=== PATIENT | male | born 1970 | race Caucasian/White ===

== ENCOUNTER → 2025-07-21 11:17 | Outpatient (REF) | payer OTHER, SELFPAY | LOC: HWRCS 11:17 | PROVIDERS: ATTENDING PHYSICIAN Internal Medicine Cardiovascular Disease; FAMILY PHYSICIAN Family Medicine | DX: Z95.1 Presence of aortocoronary bypass graft (principal); I25.2 Old myocardial infarction; I10 Essential (primary) hypertension | CPT/HCPCS: 78452; 93017; A9500 ==

== ENCOUNTER 2025-08-02 06:25 | Day surgery (SDC) | payer OTHER, SELFPAY ==
[2025-07-29 08:25] VITALS: BMI 32.8
[2025-07-29 08:26] LABS: Hematocrit 43.3 % (39.0-52.0); Hemoglobin 14.8 g/dL (13.0-18.0); Mean Corp Hgb Conc. 34.2 g/dL (33.0-37.0); Mean Corpuscular Volume 85.2 fL (80.0-94.0); Nucleated Red Blood Cells % 0 % (-); Platelet Count 171 10^3/uL (130-400); Red Cell Dist. Width 13.9 % (11.5-14.5)
[2025-07-29 09:10] LABS: ALT (SGPT) 36 U/L (0-50); AST (SGOT) 32 U/L (17-59); Albumin 4.9 g/dl (3.5-5.0); Alkaline Phosphatase 68 U/L (38-126); Blood Urea Nitrogen 19 mg/dl (9-20); Calcium 9.6 mg/dl (8.4-10.2); Carbon Dioxide 28 mmol/L (22-30); Chloride 106 mmol/L (98-107); Estimated Creatinine Clearance 125 ml/min; Glucose 100 mg/dl (70-99); Potassium 3.9 mmol/L (3.5-5.1); Sodium 142 mmol/L (135-145); Total Protein 7.7 g/dl (6.3-8.2); eGFR > 60.00
[2025-08-02] VITALS (13 sets, daily range): BP systolic 133–151; BP diastolic 83–94
[2025-08-02] MEDS: NSS 338 ML IV (07:23)
--- NOTE | 2025-08-02 09:52 | ITS.CL.CATH ---
[employer] - Catheterization
Cardiac Catheterization
Procedure Report:
LEFT HEART CATHETERIZATION
Date of Procedure: August 02, 2025
Referring: Dr. Miguel Zendejas
PROCEDURES:
1. Left heart catheterization with coronary and single-plane left ventriculography
2. Selective saphenous vein graft and DEBBI angiography
3. Preserved LV systolic function
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 He was
found to have a high-grade stenosis in OM 2 successfully treated with stent placement. He was also noted to have multivessel coronary artery disease and underwent 4 vessel coronary artery bypass grafting in January 2025 at [facility]
with a ANTHONY-LAD, SVG-diagonal, SVG-OM 2, SVG-Marginal branch from RCA.
He has been asymptomatic and feeling well post bypass and is now referred for repeat coronary angiography as part of [employer] medical evaluation.
ACCESS: Right common femoral artery, 6 [place] sheath
HEMODYNAMICS : (mmHg)
AO (s/d) : 131/80, 102
LV (s/d) : 136/10
LVEDP : 20
CORONARY ANGIOGRAPHY
Dominance: Right
LEFT MAIN: Normal
LEFT ANTERIOR DESCENDING: The LAD arises normally from the left main. There is a 90% stenosis in the proximal LAD just beyond the first septal probation and parole officer. The first diagonal branch is occluded and recipient of a patent saphenous vein graft as
prescribed below. There is competitive flow in the mid LAD from a patent ANTHONY graft. The ANTHONY graft to the mid LAD is widely patent. There is retrograde filling to the proximal LAD and anterograde filling of the mid to distal LAD. The apical LAD
has a focal 80-90% stenosis well beyond the ANTHONY anastomosis. I do not have old angiograms for comparison. The second diagonal branch is small (approx 2mm vessel) and has a focal 95% stenosis
RAMUS/Prox OM1: The ramus/OM1 is a small to medium caliber vessel with diffuse minor luminal irregularities but no focal obstructive stenosis.
CIRCUMFLEX: The circumflex is a large-caliber nondominant vessel. OM1 has overlapping proximal to mid stents. The circumflex continues in the AV groove supplying a small posterolateral system and collaterals to an occluded posterolateral branch
from the RCA as described below. There is a widely patent SVG-OM2 filling antegrade and retrograde
RIGHT CORONARY ARTERY: The right coronary artery is a small caliber dominant vessel. There are tandem 90% stenosis in the mid RCA just before an RV marginal branch. There is a 90% distal RCA stenosis. The RADIATION ONCOLOGY THERAPIST and PLB branches are very small.
There is retrograde filling of a small posterolateral branch from the distal circumflex. There is a widely patent SVG-marginal branch.
GRAFT ANGIOGRAPHY:
1. ANTHONY-LAD: widely patent with antegrade and retrograde filling of the [place] LAD. The apical LAD beyond the ANTHONY touchdown has a focal 80-90% stenosis as the vessel approaches the apex. (No old angiograms for review)
2. SVG-Diagonal: widely patent
3. SVG-OM: widely patent beyond the stents in the [place] OM
4. SVG-Marginal : The SVG-marginal branch is patent
LEFT VENTRICULOGRAPHY: Left ventriculography is performed in [place] projection. The digital single-plane left ventricular ejection fraction is visually estimated at 50-55%
SEDATION: 41 minutes of procedural sedation was utilized. An independent medical sales representative was present to assist with and help manage the patient's level of consciousness and physiologic status
RADIATION SUMMARY: Fluoro Time (min): 8.7, Dose (mGy): 885, DAP (Gy.cm2) : 76
Closure Device: 6 [place] Angio-Seal RFA
CONCLUSION
1. Severe multivessel [place] coronary artery disease with patent stent in obtuse marginal branch. All 4 bypass grafts are patent as listed above.
2. Preserved LV systolic function
RECOMMENDATIONS
1. Mr. Beck is currently free of anginal symptoms.
2 Blood pressures are mildly elevated. We will add lisinopril and continue to monitor home blood pressures for goal <130/80.
3. Will check fasting lipids and complete chemistry in 2 weeks after adding lisinopril
4. Continue antiplatelets
Copy to: Dr. Miguel Zendejas
== END 2025-08-02 12:36 | disposition home or self-care (01) ==
LOC: CATH 06:25
PROVIDERS: ATTENDING PHYSICIAN Internal Medicine Interventional Cardiology; FAMILY PHYSICIAN Family Medicine; OTHER PHYSICIAN Internal Medicine Cardiovascular Disease
DX: I25.10 Atherosclerotic heart disease of native coronary artery without angina pectoris (principal); I25.2 Old myocardial infarction; E03.9 Hypothyroidism, unspecified; E66.9 Obesity, unspecified; E78.5 Hyperlipidemia, unspecified; I10 Essential (primary) hypertension; I48.91 Unspecified atrial fibrillation; Z79.899 Other long term (current) drug therapy; Z79.82 Long term (current) use of aspirin; K57.90 Diverticulosis of intestine, part unspecified, without perforation or abscess without bleeding; Z79.02 Long term (current) use of antithrombotics/antiplatelets; Z79.890 Hormone replacement therapy; E04.1 Nontoxic single thyroid nodule; Z95.5 Presence of coronary angioplasty implant and graft; Z95.1 Presence of aortocoronary bypass graft; Z68.32 Body mass index [BMI] 32.0-32.9, adult
CPT/HCPCS: 99152; 99153; 36415; 80053; 85025; 93005; 93459; 93460; C1894; Q9967

== ENCOUNTER → 2025-08-23 13:37 | Outpatient (REF) | payer OTHER, SELFPAY ==
[2025-08-23 15:18] LABS: Blood Urea Nitrogen 15 mg/dl (9-20); Calcium 9.8 mg/dl (8.4-10.2); Carbon Dioxide 29 mmol/L (22-30); Chloride 106 mmol/L (98-107); Glucose 96 mg/dl (70-99); HDL Cholesterol 40 mg/dl; LDL Cholesterol, Calculated 48 mg/dl; Potassium 4.3 mmol/L (3.5-5.1); Sodium 142 mmol/L (135-145); Very Low Density Lipoprotein 10 mg/dl (0-30); eGFR > 60.00
== END ==
LOC: REG 13:37
PROVIDERS: ATTENDING PHYSICIAN Internal Medicine Interventional Cardiology; FAMILY PHYSICIAN Family Medicine; OTHER PHYSICIAN Internal Medicine Cardiovascular Disease
DX: Z09 Encounter for follow-up examination after completed treatment for conditions other than malignant neoplasm (principal)
CPT/HCPCS: 36415; 80048; 80061

== ENCOUNTER → 2025-09-26 12:53 | Outpatient (REF) | payer OTHER, SELFPAY | LOC: RCS 12:53 | PROVIDERS: ATTENDING PHYSICIAN Internal Medicine Cardiovascular Disease; FAMILY PHYSICIAN Family Medicine | DX: I25.2 Old myocardial infarction (principal); Z95.5 Presence of coronary angioplasty implant and graft; I10 Essential (primary) hypertension; I25.810 Atherosclerosis of coronary artery bypass graft(s) without angina pectoris; E78.00 Pure hypercholesterolemia, unspecified | CPT/HCPCS: 93225; 93226 ==